=== PATIENT | female | born 1950 | race Caucasian/White ===

== ENCOUNTER → 2016-12-09 | Outpatient (CLI) | payer MEDICARE, BC | LOC: LAB 11:21 | DX: Z01.419 Encounter for gynecological examination (general) (routine) without abnormal findings (principal); R47.01 Aphasia; E78.5 Hyperlipidemia, unspecified; I10 Essential (primary) hypertension; E55.9 Vitamin D deficiency, unspecified; Z12.4 Encounter for screening for malignant neoplasm of cervix ==

== ENCOUNTER → 2017-03-27 | Outpatient (CLI) | payer MEDICARE, BC | LOC: RAD 10:12 | DX: M25.551 Pain in right hip (principal); M41.9 Scoliosis, unspecified ==

== ENCOUNTER → 2017-11-14 | Outpatient (CLI) | payer MEDICARE, BC | LOC: LAB 09:33 | PROVIDERS: Family Medicine | DX: E03.9 Hypothyroidism, unspecified (principal) ==

== ENCOUNTER → 2017-11-30 | Outpatient (CLI) | payer MEDICARE, BC ==
[~2017-11-30] VITALS: Ht 165.1 cm; Wt 78.7 kg
[~2017-11-30] MED LIST: ALEVE220 M1 PO; ARICEPT10 M1 PO; CALCIUM 600 +1 EAC1 PO; FISH OIL 1,001000 MG PO; HYZAAR 50-12.51 EACH PO; LOW DOSE ASPIRI81 MG PO; MULTIPLE VITAMI1 TA1 PO; NAMENDA XR28 MG PO; PRAVACHOL 20MG20 MG PO; SYNTHROID RP0.088 MG PO; VITAMIN D350000 UNIT PO
[2017-11-30 10:00] VITALS: BP 134/80
[2017-11-30 10:07] LABS: ALBUMIN 4.7 g/dL (3.5-5.0); BUN/CREATININE RATIO 20.3 (6.0-26.0); TOTAL BILIRUBIN 0.7 mg/dL (0.2-1.3); TOTAL PROTEIN 8.6 g/dL (6.3-8.2)
[2017-11-30 10:11] LABS: POTASSIUM 4.1 mmol/L (3.6-5.0)
== END ==
LOC: AMSURD 09:38
PROVIDERS: Family Medicine
DX: R55 Syncope and collapse (principal); I10 Essential (primary) hypertension; E78.5 Hyperlipidemia, unspecified; E03.9 Hypothyroidism, unspecified; R47.01 Aphasia

== ENCOUNTER → 2017-12-01 | Outpatient (CLI) | payer MEDICARE, BC ==
[2017-11-30 10:00] VITALS: BP 134/80
== END ==
LOC: RAD 07:06
DX: R55 Syncope and collapse (principal); I10 Essential (primary) hypertension

== ENCOUNTER → 2018-01-26 | Outpatient (CLI) | payer MEDICARE, BC ==
[2017-11-30 10:00] VITALS: BP 134/80
[2018-01-26 09:09] LABS: BUN/CREATININE RATIO 20.3 (6.0-26.0); CALCIUM 9.8 mg/dL (8.4-10.2); POTASSIUM 3.6 mmol/L (3.6-5.0)
[2018-01-26 09:26] LABS: HEMATOCRIT 45.2 % (37.0-47.0); HEMOGLOBIN 15.3 g/dL (12.5-16.0); MEAN PLATELET VOLUME 10.2 fl (7.4-10.4); RED BLOOD COUNT 5.1 M/mm3 (4.10-5.30); RED CELL DISTRIBUTION WIDTH 13.3 % (11.5-14.5); WHITE BLOOD COUNT 6.7 K/mm3 (4.8-10.8)
== END ==
LOC: LAB 08:40
PROVIDERS: Family Medicine
DX: E03.9 Hypothyroidism, unspecified (principal); R55 Syncope and collapse; E78.5 Hyperlipidemia, unspecified; R47.01 Aphasia

== ENCOUNTER → 2018-03-16 | Outpatient (CLI) | payer MEDICARE, BC ==
[2017-11-30 10:00] VITALS: BP 134/80
[2018-03-16 11:26] LABS: ALBUMIN 4.3 g/dL (3.5-5.0); DIRECT BILIRUBIN 0.3 mg/dL (0.0-0.4); TOTAL BILIRUBIN 0.8 mg/dL (0.2-1.3); TOTAL PROTEIN 7.5 g/dL (6.3-8.2)
[2018-03-16 21:22] LABS: BUN/CREATININE RATIO 18.4 (6.0-26.0); CALCIUM 9.9 mg/dL (8.4-10.2); POTASSIUM 4.6 mmol/L (3.6-5.0)
== END ==
LOC: LAB 10:40
PROVIDERS: Family Medicine
DX: E78.5 Hyperlipidemia, unspecified (principal); E03.9 Hypothyroidism, unspecified

== ENCOUNTER → 2018-03-30 | Outpatient (CLI) | payer MEDICARE, BC ==
[2017-11-30 10:00] VITALS: BP 134/80
== END ==
LOC: CARDLAB 08:29 → CARDREHAB 08:31 → CARDLAB 08:33
DX: Z13.6 Encounter for screening for cardiovascular disorders (principal); I10 Essential (primary) hypertension; E78.5 Hyperlipidemia, unspecified; Z82.49 Family history of ischemic heart disease and other diseases of the circulatory system
CPT/HCPCS: A9500

== ENCOUNTER → 2018-04-04 | Outpatient (CLI) | payer MEDICARE, BC ==
[2017-11-30 10:00] VITALS: BP 134/80
== END ==
LOC: MAMMO 14:02
DX: Z12.31 Encounter for screening mammogram for malignant neoplasm of breast (principal)

== ENCOUNTER → 2018-04-04 | Outpatient (CLI) | payer MEDICARE, BC ==
[2017-11-30 10:00] VITALS: BP 134/80
== END ==
LOC: RAD 14:02 → MAMMO 15:15
DX: Z13.820 Encounter for screening for osteoporosis (principal)

== ENCOUNTER → 2018-04-30 | Outpatient (CLI) | payer MEDICARE ==
[2017-11-30 10:00] VITALS: BP 134/80
[2018-04-30 10:40] LABS: ALBUMIN 4.7 g/dL (3.5-5.0); DIRECT BILIRUBIN 0.2 mg/dL (0.0-0.4); TOTAL BILIRUBIN 0.9 mg/dL (0.2-1.3); TOTAL PROTEIN 8.4 g/dL (6.3-8.2)
== END ==
LOC: LAB 10:14
PROVIDERS: Family Medicine
DX: E55.9 Vitamin D deficiency, unspecified (principal); E78.5 Hyperlipidemia, unspecified; E03.9 Hypothyroidism, unspecified

== ENCOUNTER → 2019-01-31 | Outpatient (CLI) | payer MEDICARE, BC ==
[2017-11-30 10:00] VITALS: BP 134/80
[2019-01-31 15:56] LABS: EOS # 0.1 (0.04-0.40); EOS % 1.1 % (1.0-5.0); HEMATOCRIT 44.1 % (37.0-47.0); LYMPH# 2.3 (1.50-4.00); MEAN CELL VOLUME 92 fl (78-100); MEAN CORPUSCULAR HEMOGLOBIN 29 pg (27-31); MEAN CORPUSCULAR HGB CONC 32 g/dL (33-37); MEAN PLATELET VOLUME 10.7 fl (7.4-10.4); MONO # 0.6 (0.20-0.80); NEU # 4.3 (1.40-6.50); PLATELET COUNT 276 K/mm3 (130-400); RED BLOOD COUNT 4.81 M/mm3 (4.10-5.30); RED CELL DISTRIBUTION WIDTH 14.1 % (11.5-14.5); WHITE BLOOD COUNT 7.4 K/mm3 (4.8-10.8)
[2019-01-31 16:10] LABS: ALBUMIN 4.7 g/dL (3.5-5.0); CALCIUM 10.3 mg/dL (8.4-10.2); POTASSIUM 4.1 mmol/L (3.6-5.0); TOTAL BILIRUBIN 0.6 mg/dL (0.2-1.3); TOTAL PROTEIN 7.9 g/dL (6.3-8.2)
[2019-02-01 09:42] LABS: ERYTHROCYTE SEDIMENTATION RATE 14 mm/hr (0-30)
== END ==
LOC: LAB 14:23
PROVIDERS: Family Medicine
DX: E03.9 Hypothyroidism, unspecified (principal); I10 Essential (primary) hypertension; E55.9 Vitamin D deficiency, unspecified; R47.01 Aphasia; R45.1 Restlessness and agitation

== ENCOUNTER → 2019-02-01 | Outpatient (CLI) | payer MEDICARE, BC ==
[2017-11-30 10:00] VITALS: BP 134/80
[2019-02-01 18:08] LABS: URINE APPEARANCE CLEAR; URINE COLOR YELLOW
[2019-02-01 18:09] LABS: URINE BILIRUBIN NEGATIVE (NEGATIVE); URINE BLOOD NEGATIVE (NEGATIVE); URINE GLUCOSE NEGATIVE (NEGATIVE); URINE KETONE NEGATIVE (NEGATIVE); URINE LEUKOCYTE ESTERASE NEGATIVE (NEGATIVE); URINE NITRATE NEGATIVE (NEGATIVE); URINE PROTEIN(semi-quant) TRACE mg/dL (NEGATIVE); URINE UROBILINOGEN NORMAL (NORMAL)
[2019-02-01 22:30] LABS: PTH,INTACT 44.9 pg/mL (6.6-88.9)
[2019-02-02 00:22] LABS: CALCIUM, IONIZED, SERUM 1.37 mmol/L (1.19-1.41)
== END ==
LOC: LAB 14:56
PROVIDERS: Family Medicine
DX: E55.9 Vitamin D deficiency, unspecified (principal); E03.9 Hypothyroidism, unspecified; I10 Essential (primary) hypertension; R47.01 Aphasia; R45.1 Restlessness and agitation; R73.9 Hyperglycemia, unspecified

== ENCOUNTER → 2019-04-05 | Outpatient (CLI) | payer MEDICARE, BC ==
[2017-11-30 10:00] VITALS: BP 134/80
[2019-04-05 10:38] LABS: EOS # 0.1 (0.04-0.40); EOS % 1.2 % (1.0-5.0); HEMATOCRIT 45.9 % (37.0-47.0); HEMOGLOBIN 15.1 g/dL (12.5-16.0); LYMPH# 2.2 (1.50-4.00); MEAN CELL VOLUME 90 fl (78-100); MEAN CORPUSCULAR HEMOGLOBIN 30 pg (27-31); MEAN CORPUSCULAR HGB CONC 33 g/dL (33-37); MONO # 0.6 (0.20-0.80); PLATELET COUNT 213 K/mm3 (130-400); RED BLOOD COUNT 5.12 M/mm3 (4.10-5.30); RED CELL DISTRIBUTION WIDTH 13.7 % (11.5-14.5); WHITE BLOOD COUNT 6.8 K/mm3 (4.8-10.8)
[2019-04-05 10:52] LABS: CALCIUM 10.1 mg/dL (8.4-10.2); POTASSIUM 3.8 mmol/L (3.5-5.1)
== END ==
LOC: RAD 09:57
PROVIDERS: Family Medicine
DX: G31.9 Degenerative disease of nervous system, unspecified (principal); J32.1 Chronic frontal sinusitis; J32.2 Chronic ethmoidal sinusitis

== ENCOUNTER → 2019-04-26 | Outpatient (CLI) | payer MEDICARE, BC ==
[2017-11-30 10:00] VITALS: BP 134/80
== END ==
LOC: LAB 06:15
DX: E03.9 Hypothyroidism, unspecified (principal)

== ENCOUNTER → 2019-05-15 | Outpatient (CLI) | payer MEDICARE, BC ==
[2017-11-30 10:00] VITALS: BP 134/80
[2019-05-15 11:37] LABS: POTASSIUM 3.4 mmol/L (3.5-5.1)
[2019-05-15 11:38] LABS: CALCIUM 9.8 mg/dL (8.3-10.5)
== END ==
LOC: LAB 10:35
PROVIDERS: Family Medicine
DX: I10 Essential (primary) hypertension (principal)